=== PATIENT | female | born 1990 | race Caucasian/White ===

== ENCOUNTER 2017-07-09 07:47 | Emergency (ER) | payer BC ==
[~2017-07-09] VITALS: Ht 162.6 cm; Wt 61.2 kg
[~2017-07-09 07:47] MED LIST: NOHOMEMEDICATIONS
[2017-07-09] MEDS ORDERED: XANAX 0.5 MG0.5 MG PO (08:05)
[2017-07-09 08:22] LABS: ABSOLUTE LYMPHOCYTES 1.8 thou/uL (0.8-5.3); ABSOLUTE MONOCYTES 0.5 thou/uL (0.0-1.2); ABSOLUTE NEUTROPHILS 4.4 thou/uL (1.6-8.1); BASOPHILS 0.3 %; EOSINOPHILS 0.2 %; HEMATOCRIT 44.2 % (37.0-47.0); LYMPHOCYTES 26.2 %; MCH 29.9 pg (26.0-34.0); MCHC 33.8 g/dL (28.0-37.0); MCV 88.4 fL (80.0-100.0); MPV 8.2 fl. (7.2-11.1); NUCLEATED RBCS 0 /100WBC; PLATELET COUNT* 220 thou/uL (150-400); POLYS 65.3 %; RBC 5.01 mil/uL (4.20-5.00); RDW-CV 13.2 % (10.5-14.5); WBC 6.8 thou/uL (4.0-11.0)
[2017-07-09 08:22] LABS: URINE BLOOD NEGATIVE (Negative); URINE CLARITY CLEAR; URINE COLOR YELLOW; URINE GLUCOSE-RANDOM NEGATIVE (Negative); URINE LEUKOCYTES-REFLEX NEGATIVE (Negative); URINE NITRITE-REFLEX NEGATIVE (Negative); URINE PROTEIN TRACE (Negative); URINE SPECIFIC GRAVITY >= 1.030 (1.005-1.030); URINE UROBILINOGEN 0.2 E.U./dl (0.2-1.0)
[2017-07-09 08:23] LABS: ICTOTEST (BILI CONFIRMATORY) Negative (Negative); URINE BILIRUBIN 1+ (Negative); URINE KETONES 3+ (Negative)
[2017-07-09 08:52] LABS: CALCIUM 8.6 mg/dL (8.5-10.1); CREATININE 0.7 mg/dL (0.6-1.3); POTASSIUM 3.3 mmol/L (3.5-5.1)
[2017-07-09 08:57] LABS: ALBUMIN 3.9 g/dL (3.4-5.0); TOTAL BILIRUBIN 0.4 mg/dL (<0.1-1.0); TOTAL PROTEIN 7.6 g/dL (6.4-8.2)
[2017-07-09 09:05] LABS: INFLUENZA A ANTIGEN None Detected (None Detect); INFLUENZA B ANTIGEN None Detected (None Detect)
[2017-07-09] MEDS ORDERED: ZOFRAN ODT4 MG PO (09:24)
[2017-07-09] MEDS ORDERED: NORCO 5-325 TA1 EACH PO (09:24)
[2017-07-09 09:47] VITALS: BP 108/69
== END 2017-07-09 09:48 | disposition home or self-care (01) ==
LOC: M.ERS 07:47
PROVIDERS: Emergency Medicine Emergency Medical Services
DX: K29.70 Gastritis, unspecified, without bleeding (principal); F41.9 Anxiety disorder, unspecified; F10.99 Alcohol use, unspecified with unspecified alcohol-induced disorder

== ENCOUNTER 2018-11-05 11:58 | Emergency (ER) | payer BC ==
[~2018-11-05] VITALS: Ht 160 cm; Wt 61.2 kg
[~2018-11-05 11:58] MED LIST changes: +NORCO 5-325 TA1 EACH PO; +XANAX 0.5 MG0.5 MG PO; +ZOFRAN ODT4 MG PO
[2018-11-05] MEDS ORDERED: LEXAPRO20 MG PO (12:15)
[2018-11-05 12:58] LABS: URINE BILIRUBIN NEGATIVE (Negative); URINE BLOOD NEGATIVE (Negative); URINE CLARITY CLEAR; URINE COLOR YELLOW; URINE GLUCOSE-RANDOM NEGATIVE (Negative); URINE KETONES TRACE (Negative); URINE LEUKOCYTES-REFLEX NEGATIVE (Negative); URINE NITRITE-REFLEX NEGATIVE (Negative); URINE PROTEIN TRACE (Negative); URINE UROBILINOGEN 0.2 E.U./dl (0.2-1.0)
[2018-11-05 13:11] LABS: ABSOLUTE EOSINOPHILS 0.1 thou/uL (0.0-0.7); ABSOLUTE LYMPHOCYTES 2.3 thou/uL (0.8-5.3); ABSOLUTE MONOCYTES 0.5 thou/uL (0.0-1.2); ABSOLUTE NEUTROPHILS 4.8 thou/uL (1.6-8.1); BASOPHILS 0.4 %; EOSINOPHILS 1.2 %; HEMATOCRIT 39.9 % (37.0-47.0); HEMOGLOBIN 13.5 gm/dL (12.0-15.0); LYMPHOCYTES 29.6 %; MCH 30.7 pg (26.0-34.0); MCHC 33.7 g/dL (28.0-37.0); MCV 90.9 fL (80.0-100.0); NUCLEATED RBCS 0 /100WBC; PLATELET COUNT* 215 thou/uL (150-400); POLYS 61.8 %; RBC 4.39 mil/uL (4.20-5.00); RDW-CV 12.1 % (10.5-14.5); WBC 7.8 thou/uL (4.0-11.0)
[2018-11-05 13:33] LABS: ANION GAP 7 mmol/L (7-16); BUN 16 mg/dL (7-18); CALCIUM 9.2 mg/dL (8.5-10.1); CHLORIDE 105 mmol/L (98-107); CO2 29 mmol/L (21-32); CREATININE 0.6 mg/dL (0.6-1.3); GLUCOSE 87 mg/dL (70-99); POTASSIUM 3.8 mmol/L (3.5-5.1); SODIUM 141 mmol/L (136-145); TROPONIN-I LEVEL <0.06 ng/mL (<0.06)
[2018-11-05 13:35] LABS: ALKALINE PHOSPHATASE 69 U/L (46-116); NT-PRO BRAIN NAT PEPTIDE 67 pg/mL (<300); SGOT 17 U/L (15-37); SGPT 13 U/L (30-65); TOTAL BILIRUBIN 0.2 mg/dL (<0.1-1.0); TOTAL PROTEIN 7.4 g/dL (6.4-8.2)
[2018-11-05] MEDS ORDERED: ONDANSETRON HCL4 M2 PO (15:06)
[2018-11-05] MEDS ORDERED: MECLIZINE HCL25 MG PO (15:06)
[2018-11-05] MEDS ORDERED: FLEXERIL PO (15:08)
[2018-11-05 15:27] VITALS: BP 102/61
--- NOTE | 2018-11-05 15:32 | EKG ---
[place] [address] ELECTROCARDIOGRAM REPORT Name: CARLOS ARCE Room: [facility]#: [id number] Admission: 11/05/18 Attend Phys: Discharge: 11/05/18 Date of : 88 Report #: [id number] THIS REPORT FOR: //name// [place] [facility] Test Date: 2018-11-05 Test Time: 12:20:25 Pat Name: CARLOS ARCE Department: Room: Gender: F Director Of Instruction: MAARJIT : 1990 Requested By: Leela Meadows Order Number: [id number] MD: Alexis Arteaga Measurements Intervals [place] Rate: 65 P: -13 NV: 163 QRS: 67 QRSD: 86 T: 38 QT: 394 QTc: 410 Interpretive Statements Sinus rhythm No previous ECG available for comparison Electronically Signed On 11-05-2018 15:32:29 CDT by Alexis Arteaga [email or web address] <ELECTRONICALLY SIGNED> By: Alexis Arteaga MD, [facility] 11/05/18 1532 1220 1220 Alexis Arteaga MD, FACC /EPI
== END 2018-11-05 15:29 | disposition home or self-care (01) ==
LOC: M.ERS 11:58
PROVIDERS: Nurse Practitioner Family
DX: H81.10 Benign paroxysmal vertigo, unspecified ear (principal); S29.012A Strain of muscle and tendon of back wall of thorax, initial encounter; R20.0 Anesthesia of skin; F41.9 Anxiety disorder, unspecified; X58.XXXA Exposure to other specified factors, initial encounter; Y93.89 Activity, other specified; Y92.89 Other specified places as the place of occurrence of the external cause; Y99.8 Other external cause status

== ENCOUNTER 2019-07-07 09:48 | Emergency (ER) | payer BC ==
[~2019-07-07] VITALS: Ht 160 cm; Wt 59.0 kg
[~2019-07-07 09:48] MED LIST changes: +FLEXERIL PO; +LEXAPRO20 MG PO; +MECLIZINE HCL25 MG PO; +ONDANSETRON HCL4 M2 PO
[2019-07-07 10:21] LABS: INFLUENZA A ANTIGEN Negative (Negative); INFLUENZA B ANTIGEN Negative (Negative)
[2019-07-07 10:54] LABS: ABSOLUTE LYMPHOCYTES 1.4 thou/uL (0.8-5.3); ABSOLUTE MONOCYTES 0.6 thou/uL (0.0-1.2); BASOPHILS 0.2 %; EOSINOPHILS 0.2 %; HEMATOCRIT 38.7 % (37.0-47.0); HEMOGLOBIN 13.4 gm/dL (12.0-15.0); LYMPHOCYTES 15.4 %; MCH 31.2 pg (26.0-34.0); MCHC 34.6 g/dL (28.0-37.0); MCV 90.2 fL (80.0-100.0); MONOCYTES 6.1 %; MPV 8.6 fl. (7.2-11.1); NUCLEATED RBCS 0 /100WBC; PLATELET COUNT* 194 thou/uL (150-400); POLYS 78.1 %; RBC 4.29 mil/uL (4.20-5.00); RDW-CV 11.9 % (10.5-14.5)
[2019-07-07 11:05] LABS: CALCIUM 9.1 mg/dL (8.5-10.1); CREATININE 0.6 mg/dL (0.6-1.3); POTASSIUM 3.7 mmol/L (3.5-5.1)
[2019-07-07 11:10] LABS: ALBUMIN 3.5 g/dL (3.4-5.0); TOTAL BILIRUBIN 0.2 mg/dL (<0.1-1.0)
[2019-07-07 11:46] LABS: URINE BILIRUBIN NEGATIVE (Negative); URINE BLOOD NEGATIVE (Negative); URINE CLARITY CLEAR; URINE COLOR YELLOW; URINE GLUCOSE-RANDOM NEGATIVE (Negative); URINE KETONES TRACE (Negative); URINE LEUKOCYTES-REFLEX NEGATIVE (Negative); URINE NITRITE-REFLEX NEGATIVE (Negative); URINE PROTEIN NEGATIVE (Negative); URINE UROBILINOGEN 0.2 E.U./dl (0.2-1.0)
[2019-07-07] MEDS ORDERED: MEDROLDOSEPACK PO (11:50)
[2019-07-07] MEDS ORDERED: TAMIFLU75 MG PO (11:50)
[2019-07-07] MEDS ORDERED: PHENERGAN 25 MG25 M1 PO (12:30)
[2019-07-07 12:36] VITALS: BP 88/54
== END 2019-07-07 12:36 | disposition home or self-care (01) ==
LOC: M.ERS 09:48
PROVIDERS: Nurse Practitioner Family
DX: B34.9 Viral infection, unspecified (principal); R53.1 Weakness

== ENCOUNTER 2020-06-29 09:43 | Emergency (ER) | payer BC ==
[~2020-06-29] VITALS: Ht 160 cm; Wt 63.5 kg
[~2020-06-29 09:43] MED LIST changes: +MEDROLDOSEPACK PO; +PHENERGAN 25 MG25 M1 PO; +TAMIFLU75 MG PO
[2020-06-29 09:52] VITALS: BP 105/72
[2020-06-29 10:43] LABS: INFLUENZA A ANTIGEN Negative (Negative); INFLUENZA B ANTIGEN Negative (Negative)
[2020-06-29] MEDS ORDERED: VENTOLIN HFA 1818 GM INH (10:45)
== END 2020-06-29 11:11 | disposition home or self-care (01) ==
LOC: M.ERS 09:43
PROVIDERS: Nurse Practitioner Family
DX: U07.1 COVID-19 (principal)